=== PATIENT | male | born 1970 | race African-American/Black ===

== ENCOUNTER → 2023-08-21 11:38 | Outpatient (REF) | payer OTHER, SELFPAY | LOC: RAD 11:38 | PROVIDERS: ATTENDING PHYSICIAN Physician Assistant; FAMILY PHYSICIAN Family Medicine | DX: M35.1 Other overlap syndromes (principal); M79.641 Pain in right hand; M79.642 Pain in left hand; M79.89 Other specified soft tissue disorders | CPT/HCPCS: 73120 ==

== ENCOUNTER 2024-05-29 17:55 | Emergency (ER) | payer OTHER, SELFPAY ==
[2024-05-29 17:59] VITALS: BP 124/80
[2024-05-29 19:20] VITALS: BMI 28.6
--- NOTE | 2024-05-29 20:48 | ED.GENMED ---
History of Present Illness
General
Chief Complaint: Skin Surface Trauma
Source: patient
Exam Limitations: none
Time Seen by Provider: 05/29/24 19:43
Nursing documentation reviewed up to this point in time: agreed with
History of Present Illness
History of Present Illness:
54-year-old male presenting to the emergency department today after stepping on a nail with his left foot prior to arrival. Unsure when his last tetanus shot was. Ongoing pain mainly to the distal foot on the lateral aspect. Denies any numbness
weakness or additional concerns
Past History
Past History
ED Past Medical History: HTN
ED Past Surgical History: None
Social History
Tobacco: Non-smoker
Alcohol: None
Personal: Single
Living: with family
Employment: Employed
Review of Systems
Review of Systems
Allergies reviewed?: Yes
All Other Systems: ROS reviewed and negative except as documented in HPI and ROS
Phy Exam
Physical Exam
Physical Exam:
GENERAL: Alert , in no apparent distress
EYE: pupils equal and reactive
NECK: Supple, no significant adenopathy.
ENT: o/p clr, mmm.
CARDIAC: Regular rate and rhythm .
LUNGS: Clear breath sounds bilaterally, no acute respiratory distress, no wheezes/rales/rhonchi
ABDOMEN: Soft, without focal tenderness, no r/g, no cvat
NEUROLOGICAL: Alert and oriented, no focal neuro deficits
SKIN: Warm and dry, skin intact.
MUSCULOSKELETAL: Small scab to the lateral aspect of the left distal he otherwise no edema, well perfused.
PSYCH: Normal and appropriate interaction.
Course
Orders/Labs/Results
Orders:
Orders
05/29/24 20:12
Foot, Left 3 View [CR Foot - Left Min 3 Views] Urgent
Comment:
Reason For Exam: possible FB. stepped on nail
05/29/24 20:48
Ciprofloxacin HCl [Cipro] 500 mg PO ONCE ONE
Vital Signs
Initial and Last Documented VS:
Initial Vital Signs
Temp Pulse Resp BP Pulse Ox
97.9 F 68 16 124/80 98
05/29/24 17:59 05/29/24 17:59 05/29/24 17:59 05/29/24 17:59 05/29/24 17:59
Last Documented Vital Signs
Temp Pulse Resp BP Pulse Ox
97.9 F 68 16 124/80 98
05/29/24 17:59 05/29/24 17:59 05/29/24 17:59 05/29/24 17:59 05/29/24 17:59
MDM/Problems Addressed
MDM/Problems Addressed:
54-year-old male presenting to the emergency department today with concerns of stepping on nail prior to arrival. He claims that this went through his shoe is had ongoing pain since. X-ray without emergent findings. Patient was concerned of
infection was started on Cipro and notified about the black box warning. Otherwise given a tetanus shot stable for discharge return precautions given.
*Critical Care Note
Total Time (30-74mins, 75-104mins- exclusive of procedures): Not Applicable
ED Attending Note
-
Portions of this chart may have been created with voice recognition software.� Occasional wrong word or��sound alike� substitutions may have occurred due to the inherent limitations of voice recognition software.
Discharge Plan
Departure
Patient Disposition: Home (Routine Discharge)
Date of Disposition: 05/29/24
Time of Disposition: 20:51
Patient with high blood pressure during this ER visit?: No
Condition: Good
Covid-19: Not Applicable
Discharge Problem:
Puncture wound of lesser toe of left foot w/o FB with damage to nail
Instructions: Wound Care (DC)
Prescriptions:
New
ciprofloxacin HCl 500 mg tablet
500 mg PO BID 3 Days Qty: 6 0RF
No Action
amlodipine [Norvasc] 10 MG tablet
10 mg PO DAILY
atenolol 50 MG tablet
50 mg PO DAILY
Referrals:
UNKNOWN - PT DOES,NOT KNOW [Family Provider] -
Activity Restrictions/Additional Instructions:
You came to the emergency department today with concerns of stepping on a nail. Here you were given antibiotics as well as a tetanus shot. Please keep a close eye on the area. If you see any signs of infection return for any worsening, new or
concerning symptoms.
Interventions
Interventions:
*Risk Screen - Suicide Last Done: 05/29/24 18:00
*General Assessment Last Done: 05/29/24 19:20
*Neglect/Abuse Screening Last Done: 05/29/24 18:00
*ED COVID-19 Vaccine History Last Done: 05/29/24 19:20
ED-Skin Assessment Last Done: 05/29/24 19:22
Discharge Date and Time
Print Language: HEBREW
[2024-05-29] MEDS: ADACEL 0.5 ML IM (20:53)
[2024-05-29] MEDS: CIPRO 500 MG PO (20:53)
== END 2024-05-29 20:58 | disposition home or self-care (01) ==
LOC: EMR 17:55
PROVIDERS: EMERGENCY PHYSICIAN Student in an Organized Health Care Education/Training Program
DX: S91.135A Puncture wound without foreign body of left lesser toe(s) without damage to nail, initial encounter (principal); W45.0XXA Nail entering through skin, initial encounter; I10 Essential (primary) hypertension; Z23 Encounter for immunization
CPT/HCPCS: 90471; 99283; 73630; 90715